=== PATIENT | female | born 1935 | race Caucasian/White ===

== ENCOUNTER 2018-02-04 14:20 | Emergency (ER) | payer OTHER ==
[~2018-02-04] VITALS: Ht 167.6 cm; Wt 62.1 kg
[~2018-02-04 14:20] MED LIST: ARICEPT5 MG PO; ASA81 MG PO; CARVEDILOL12.5 MG PO; LISINOPRIL10 MG PO; MACROBID 100 M100 MG PO; PYRIDIUM200 MG PO; VITAMIN D400 UNIT PO; Z PACERONE PO; Z.0.ATENOLOL50 MG PO; Z.0.CRESTOR10 MG PO; Z.0.DIOVAN160 MG PO; Z.0.LEVOTHROID50 MCG PO; Z.0.ZETIA10 MG PO
[2018-02-04] MEDS ORDERED: ALBUTEROL/IPRATROPIUM 3 ML NEB NEB ONE (17:00)
[2018-02-04 17:33] LABS: BASOPHILS # (AUTO) 0.1 (0.0-0.1); BASOPHILS % 0.7 % (0.0-1.0); EOSINOPHILS # (AUTO) 0.3 (0.0-0.4); EOSINOPHILS % 3.5 % (0.0-6.0); HEMATOCRIT 39.7 % (34.2-44.1); HEMOGLOBIN 12.9 g/dL (12.0-16.0); LYMPHOCYTES # (AUTO) 0.9 (1.0-3.2); LYMPHOCYTES % 10.7 % (18.0-39.1); MEAN CORPUSCULAR HEMOGLOBIN 31.1 pg (28-32); MEAN CORPUSCULAR HGB CONC 32.5 g/dL (31-35); MEAN CORPUSCULAR VOLUME 95.7 fL (81-99); MONOCYTES % 11.3 % (4.4-11.3); NEUTROPHILS # (AUTO) 6.1 (2.1-6.9); NEUTROPHILS % 71.7 % (38.7-80.0); PLATELET COUNT 325 x10e3/uL (140-360); RED BLOOD COUNT 4.15 x10e6/uL (3.6-5.1); RED CELL DISTRIBUTION WIDTH 14.1 % (11.7-14.4)
[2018-02-04] MEDS ORDERED: AZITHROMYCIN 500MG/NS 250 ML 250 ML IV ONE (18:30)
== END 2018-02-04 19:24 | disposition home or self-care (01) ==
LOC: FSED 14:20
DX: R50.9 Fever, unspecified (principal); R05 Cough; J18.1 Lobar pneumonia, unspecified organism; J98.01 Acute bronchospasm; G30.9 Alzheimer's disease, unspecified; I10 Essential (primary) hypertension; I48.2 Chronic atrial fibrillation; E01.8 Other iodine-deficiency related thyroid disorders and allied conditions
CPT/HCPCS: 36415; 71046; 85025; 99284; J0456

== ENCOUNTER 2019-12-09 18:13 | Emergency (ER) | payer MEDICARE, OTHER ==
[~2019-12-09] VITALS: Ht 167.6 cm; Wt 68.0 kg
[2019-12-09] MEDS ORDERED: LIDOCAINE 1% W/EPINEPHRINE 20 ML VIAL INJ ONE (18:45)
[2019-12-09] MEDS ORDERED: LIDOCAINE 1% W/EPINEPHRINE 20 ML VIAL ONE (19:15)
--- NOTE | 2019-12-09 19:40 | Diagnostic Imaging Report ---
History: Fall, pain Comparison studies:None Technique: Axial images were obtained from the brain and cervical spine. Coronal and sagittal images reconstructed from the axial data. Intravenous contrast: None Dose modulation, iterative reconstruction, and/or weight based adjustment of the mA/kV was utilized to reduce the radiation dose to as low as reasonably achievable. Findings: Head CT: Scalp/skull: No abnormalities. No fractures, blastic or lytic lesions. Brain sulci: Moderately prominent. Ventricles: Moderate compensatory dilatation. No hydrocephalus. Parenchyma: Subtle hypodensities in the supratentorial white matter are small vessel ischemic changes. No masses, hemorrhage, acute or chronic cortical vascular insults. Sellar/suprasellar region: No abnormalities. Craniocervical junction: Patent foramen magnum. No Chiari one malformation. Incidental findings: Atherosclerotic calcifications in the carotid siphons and right vertebral artery . Cervical spine CT: Fractures: None. Soft tissues: No gross abnormalities. Atlantoaxial articulation: No acute abnormalities. Alignment: Straightening of the normal lordosis. No scoliosis. Cervicomedullary junction: No abnormalities. Patent foramen magnum. Vertebrae: No infection or neoplasm. 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 Incidental findings: None. Impression: Head CT: 1. No acute intracranial abnormality. 2. Mild chronic microvascular ischemic changes of the white matter and moderate diffuse volume loss. Cervical spine CT: 1. No acute abnormalities. 2. Cannot exclude ligament, spinal cord and or vascular abnormalities on the basis of this examination. Signed by: DR Km Vieyra M.D. on 12/09/2019 8:28 PM
== END 2019-12-09 19:58 | disposition home or self-care (01) ==
LOC: FSED 18:13
DX: S01.01XA Laceration without foreign body of scalp, initial encounter (principal); W01.0XXA Fall on same level from slipping, tripping and stumbling without subsequent striking against object, initial encounter; Y93.01 Activity, walking, marching and hiking; Y92.008 Other place in unspecified non-institutional (private) residence as the place of occurrence of the external cause; F03.90 Unspecified dementia, unspecified severity, without behavioral disturbance, psychotic disturbance, mood disturbance, and anxiety; E78.5 Hyperlipidemia, unspecified
CPT/HCPCS: 70450; 72125; 96372; 99283

== ENCOUNTER 2022-04-18 21:55 | Emergency (ER) | payer MEDICARE ==
[~2022-04-18] VITALS: Ht 167.6 cm; Wt 68.0 kg
[2022-04-18 22:30] LABS: BASOPHILS # (AUTO) 0.1 (0.0-0.1); BASOPHILS % 0.9 % (0.0-1.0); EOSINOPHILS # (AUTO) 0.4 (0.0-0.4); EOSINOPHILS % 5.6 % (0.0-6.0); HEMATOCRIT 41.3 % (34.2-44.1); HEMOGLOBIN 13.1 g/dL (12.0-16.0); LYMPHOCYTES # (AUTO) 1.9 (1.0-3.2); LYMPHOCYTES % 24.4 % (18.0-39.1); MEAN CORPUSCULAR HGB CONC 31.7 g/dL (31-35); MEAN CORPUSCULAR VOLUME 100.7 fL (81-99); MONOCYTES # (AUTO) 0.6 (0.2-0.8); NEUTROPHILS # (AUTO) 4.8 (2.1-6.9); NEUTROPHILS % 60.1 % (38.7-80.0); PLATELET COUNT 394 x10e3/uL (140-360); RED CELL DISTRIBUTION WIDTH 13.4 % (11.7-14.4)
[2022-04-18 22:50] LABS: ALANINE AMINOTRANSFERASE 15 IU/L (0-55); ALBUMIN 3.5 g/dL (3.5-5.0); ALBUMIN/GLOBULIN RATIO 0.9 (0.8-2.0); ALKALINE PHOSPHATASE 34 IU/L (40-150); ANION GAP 13.9 mmol/L (8-16); BLOOD UREA NITROGEN 16 mg/dL (7-26); BUN/CREATININE RATIO 23 (6-25); CALCIUM 8.1 mg/dL (8.4-10.2); CARBON DIOXIDE 28 mmol/L (22-29); CHLORIDE 104 mmol/L (98-107); CREATINE KINASE 46 IU/L (29-168); GLUCOSE 107 mg/dL (74-118); POTASSIUM 3.9 mmol/L (3.5-5.1); SODIUM 142 mmol/L (136-145)
[2022-04-19 01:27] LABS: CREATINE KINASE MB 1.9 ng/mL (0-5.0)
== END 2022-04-19 01:45 | disposition home or self-care (01) ==
LOC: ER 22:00
DX: R07.9 Chest pain, unspecified (principal); I10 Essential (primary) hypertension; E03.9 Hypothyroidism, unspecified; I25.10 Atherosclerotic heart disease of native coronary artery without angina pectoris; G30.9 Alzheimer's disease, unspecified; F02.80 Dementia in other diseases classified elsewhere, unspecified severity, without behavioral disturbance, psychotic disturbance, mood disturbance, and anxiety; R94.31 Abnormal electrocardiogram [ECG] [EKG]
CPT/HCPCS: 36415; 71045; 80053; 82550; 82553; 84484; 85025; 99284

== ENCOUNTER 2022-06-16 12:47 | Observation (INO) | payer MEDICARE ==
[~2022-06-16] VITALS: Ht 167.6 cm; Wt 68.0 kg
[2022-06-16 13:31] LABS: BASOPHILS # (AUTO) 0.1 (0.0-0.1); EOSINOPHILS # (AUTO) 0.3 (0.0-0.4); EOSINOPHILS % 4.1 % (0.0-6.0); HEMATOCRIT 40.1 % (34.2-44.1); HEMOGLOBIN 12.6 g/dL (12.0-16.0); LYMPHOCYTES # (AUTO) 1.6 (1.0-3.2); LYMPHOCYTES % 19.6 % (18.0-39.1); MEAN CORPUSCULAR HEMOGLOBIN 31.6 pg (28-32); MEAN CORPUSCULAR HGB CONC 31.4 g/dL (31-35); MEAN CORPUSCULAR VOLUME 100.5 fL (81-99); MONOCYTES # (AUTO) 0.7 (0.2-0.8); MONOCYTES % 8.5 % (4.4-11.3); NEUTROPHILS # (AUTO) 5.2 (2.1-6.9); NEUTROPHILS % 65.4 % (38.7-80.0); PLATELET COUNT 480 x10e3/uL (140-360); RED BLOOD COUNT 3.99 x10e6/uL (3.6-5.1); RED CELL DISTRIBUTION WIDTH 13.2 % (11.7-14.4)
[2022-06-16 13:52] LABS: ALANINE AMINOTRANSFERASE 13 IU/L (0-55); ALBUMIN 3.4 g/dL (3.5-5.0); ALBUMIN/GLOBULIN RATIO 0.9 (0.8-2.0); ALKALINE PHOSPHATASE 225 IU/L (40-150); ANION GAP 13.9 mmol/L (8-16); BLOOD UREA NITROGEN 16 mg/dL (7-26); BUN/CREATININE RATIO 23 (6-25); CALCIUM 8.7 mg/dL (8.4-10.2); CARBON DIOXIDE 28 mmol/L (22-29); CHLORIDE 103 mmol/L (98-107); CREATININE, SERUM 0.69 mg/dL (0.57-1.11); GLUCOSE 114 mg/dL (74-118); POTASSIUM 3.9 mmol/L (3.5-5.1); SODIUM 141 mmol/L (136-145)
[2022-06-16 14:36] LABS: CLARITY,URINE CLEAR (CLEAR); COLOR,URINE YELLOW (YELLOW); KETONES,URINE NEGATIVE (NEGATIVE); LEUKOCYTE ESTERASE ,URINE NEGATIVE (NEGATIVE); NITRITE,URINE NEGATIVE (NEGATIVE); PROTEIN,URINE DIPSTICK NEGATIVE (NEGATIVE); URINE UROBILINOGEN 0.2 mg/dL (0.2 - 1)
[2022-06-16] MEDS ORDERED: ONDANSETRON HCL INJ 2MG/ML 2ML 2 MG/ML VIAL IV PRN ×2 (14:45→20:45)
[2022-06-16] MEDS ORDERED: HYDROCODONE/APAP 5MG-325MG TAB PO PRN (14:45)
[2022-06-16] MEDS ORDERED: SODIUM CHLORIDE FLUSH 10 ML SYR INJ PRN (14:45)
[2022-06-16 14:50] LABS: EPITHELIAL CELLS,URINE FEW /LPF
[2022-06-16 14:51] LABS: BACTERIA,URINE MODERATE /HPF; WBC,URINE (MAN) 0-5 /HPF (0-5)
[2022-06-16 14:53] LABS: RBC,URINE 0-5 /HPF (0-5)
[2022-06-16 14:55] LABS: MUCUS,URINE FEW (RARE)
[2022-06-16] MEDS ORDERED: ONDANSETRON HCL INJ 2MG/ML 2ML 2 MG/ML VIAL IV STA (15:04)
[2022-06-16] MEDS ORDERED: FENTANYL CITRATE/PF 100MCG/2 ML INJ IV ONE (15:15)
[2022-06-16] MEDS ORDERED: ACETAMINOPHEN 325 MG TAB PO PRN (15:15)
[2022-06-16] MEDS: CARVEDILOL 12.5 MG TAB PO SCH (18:02)
[2022-06-16] MEDS ORDERED: CLONIDINE HCL 0.1 MG TAB PO PRN (20:45)
[2022-06-16] MEDS: DONEPEZIL HCL 5 MG TAB PO SCH (21:54)
[2022-06-17] MEDS: LEVOTHYROXINE SODIUM 50 MCG TAB PO SCH (06:31)
[2022-06-17 09:35] VITALS: BP 172/78
[2022-06-17 09:54] VITALS: BP 172/78
[2022-06-17] MEDS: ASPIRIN 81 MG ENTERIC COATED PO SCH (11:35)
[2022-06-17] MEDS: LISINOPRIL 20 MG TAB PO SCH (11:35)
[2022-06-17] MEDS: CARVEDILOL 12.5 MG TAB PO SCH ×2 (11:36→16:24)
[2022-06-17 11:43] VITALS: BP 167/72
[2022-06-17 15:42] VITALS: BP 155/61
[2022-06-17] MEDS ORDERED: LORAZEPAM 0.5 MG TAB PO PRN (18:15)
[2022-06-17] MEDS ORDERED: FENTANYL 50 MCG/HR PATCH TOP SCH (19:00)
[2022-06-17 20:00] VITALS: BP 156/63
[2022-06-17] MEDS: DONEPEZIL HCL 5 MG TAB PO SCH (20:53)
[2022-06-17] MEDS ORDERED: MELATONIN 3 MG TAB PO SCH (21:00)
[2022-06-18 04:00] VITALS: BP 153/56
[2022-06-18] MEDS: LEVOTHYROXINE SODIUM 50 MCG TAB PO SCH (05:31)
[2022-06-18 08:16] VITALS: BP 164/63
[2022-06-18] MEDS ORDERED: ONDANSETRON HCL 4 MG ORAL DISINTEGRATING TAB PO PRN (09:00)
[2022-06-18] MEDS: ASPIRIN 81 MG ENTERIC COATED PO SCH (09:06)
[2022-06-18] MEDS: CARVEDILOL 12.5 MG TAB PO SCH (09:06)
[2022-06-18] MEDS: LISINOPRIL 20 MG TAB PO SCH (09:07)
[2022-06-18 09:10] VITALS: BP 164/63
[2022-06-18] MEDS ORDERED: ULTRAM50 MG PO ×2 (10:29→11:03)
[2022-06-18 10:39] VITALS: BP 164/63
[2022-06-18 11:52] VITALS: BP 136/64
== END 2022-06-18 12:50 | disposition home or self-care (01) ==
LOC: ER 13:05 → ERHOLD 14:41 → INTOOBSV 14:41 → MED/SURG 06-17 09:35
PROVIDERS: ADMIT Internal Medicine; ATTEND Internal Medicine
DX: M48.58XA Collapsed vertebra, not elsewhere classified, sacral and sacrococcygeal region, initial encounter for fracture (principal); I10 Essential (primary) hypertension; F03.90 Unspecified dementia, unspecified severity, without behavioral disturbance, psychotic disturbance, mood disturbance, and anxiety; I48.91 Unspecified atrial fibrillation; Z79.01 Long term (current) use of anticoagulants; E03.9 Hypothyroidism, unspecified; Z99.89 Dependence on other enabling machines and devices; Z20.822 Contact with and (suspected) exposure to COVID-19; Z74.09 Other reduced mobility; S22.32XA Fracture of one rib, left side, initial encounter for closed fracture; W19.XXXA Unspecified fall, initial encounter
CPT/HCPCS: 0223U; 36415; 71045; 72131; 72148; 72192; 72195; 80053; 81001; 84443; 84484; 85025; 87086; 87186; 93005; 97116; 97162; 97530; 99284; G0378 ×3; J2405; J3010

== ENCOUNTER 2023-01-01 10:30 | Emergency (ER) | payer MEDICARE ==
[~2023-01-01] VITALS: Ht 165.1 cm; Wt 63.5 kg
[~2023-01-01 10:30] MED LIST changes: +ULTRAM50 MG PO
[2023-01-01] MEDS ORDERED: ALBUTEROL/IPRATROPIUM 3 ML NEB NEB ONE (11:30)
[2023-01-01] MEDS ORDERED: ALBUTEROL/IPRATROPIUM 3 ML NEB ONE (11:54)
[2023-01-01] MEDS ORDERED: CEFTRIAXONE 1 GM VIAL ONE (11:54)
[2023-01-01] MEDS ORDERED: ALBUTEROL2.5 MG/3 M INH (12:32)
[2023-01-01] MEDS ORDERED: CEFDINIR300 MG PO (12:33)
[2023-01-01 12:46] VITALS: BP 176/76
== END 2023-01-01 12:46 | disposition home or self-care (01) ==
LOC: FSED 10:34
DX: J06.9 Acute upper respiratory infection, unspecified (principal); J98.01 Acute bronchospasm; N39.0 Urinary tract infection, site not specified; I10 Essential (primary) hypertension; E03.9 Hypothyroidism, unspecified; I48.91 Unspecified atrial fibrillation
CPT/HCPCS: 71045; 80053; 81003; 82553; 83518; 83880; 84484; 85025; 87086; 87186; 87400; 99284; J0696; U0002